=== PATIENT | female | born 1950 | race Caucasian/White ===

== ENCOUNTER 2021-06-29 10:39 | Emergency (ER) | payer MEDICARE ==
[2021-06-29] MEDS ORDERED: LIDOCAINE (1%) 10 MG/1 ML VIAL 20 ML MDV INFILTRATI ONE (10:51)
[2021-06-29] MEDS ORDERED: ceFAZolin 1 GM VIAL IM ONE (10:52)
[2021-06-29] MEDS ORDERED: SODIUM CHLORIDE 0.9% IRR 500 ML BOTTLE IR SCH (11:00)
[2021-06-29] MEDS ORDERED: HYDROcodone/ACETAMINOPHEN 5-325 MG TAB PO SCH (11:00)
[2021-06-29] MEDS ORDERED: TETANUS,DIPHTHERIA TOXOID ADULT 0.5 ML INJ IM ONE (11:30)
--- NOTE | 2021-06-29 11:33 | XRay Report ---
LEFT INDEX FINGER 3 VIEWS 1106 INDICATION: pain sp finger injury COMPARISON: None available. FINDINGS: There appears to be a laceration soft tissues of the index finger dorsolaterally near the d istal phalangeal joint. The distal phalanx is subluxed mildly laterally. A bony density is seen dorso medially at the distal interphalangeal joint which possibly could be a small avulsion fragment but is of an indeterminate age, and another tiny density which probably is bony is seen ventral medially al so of unknown age. No obvious donor site is identified. Slight lucency in the ventral aspect of the d istal portion of the middle phalanx probably relates to trabecular pattern rather than a fracture elieser vega Signer Name: Michael Miranda MD Signed: 06/29/2021 11:28 AM Workstation Name: [id number]
[2021-06-29] MEDS ORDERED: NEOMY 3.5 MG/BACIT 400 UNITS/POLY B 5000 UNITS/GM OINT PACKET TP ONE (12:52)
[2021-06-29] MEDS ORDERED: IBUPROFEN 800 MG TAB PO ONE (12:52)
[2021-06-29] MEDS ORDERED: oxyCODONE /ACETAMINOPHEN 5-325MG TAB PO ONE (12:52)
--- NOTE | 2021-06-29 12:53 | Emergency Department Report ---
- General Chief Complaint: Extremity Injury, Upper Stated Complaint: FINGER INJURY Time Seen by Provider: 06/29/21 10:51 Source: patient Mode of arrival: Ambulatory Limitations: Language Barrier - History of Present Illness Initial Comments: 70 yo comes to ER p slamming her left finger in the car door. Bleeding on arrival No other injury needs tdap -: Sudden Place: home Patient Tetanus UTD: No Context: accidental Associated Symptoms: none - Related Data Previous Rx's Medication Instructions Recorded Last Taken Type cephALEXin [Keflex] 500 mg PO Q12HR #20 cap 06/29/21 Unknown Rx traMADoL [Ultram] 50 mg PO Q6HR PRN #12 tablet 06/29/21 Unknown Rx Allergies Allergy/AdvReac Type Severity Reaction Status Date / Time No Known Allergies Allergy Unverified 06/29/21 10:45 ED Review of Systems ROS: Stated complaint: FINGER INJURY Other details as noted in HPI Comment: All other systems reviewed and negative ED Past Medical Hx - Past Medical History Previous Medical History?: No - Surgical History Past Surgical History?: No - Family History Family history: no significant - Social History Smoking Status: Never Smoker Substance Use Type: None - Medications Home Medications: Home Medications Medication Instructions Recorded Confirmed Last Taken Type cephALEXin [Keflex] 500 mg PO Q12HR #20 cap 06/29/21 Unknown Rx traMADoL [Ultram] 50 mg PO Q6HR PRN #12 tablet 06/29/21 Unknown Rx ED Physical Exam - General Limitations: Language Barrier General appearance: alert, in no apparent distress - Head Head exam: Present: atraumatic, normocephalic - Eye Eye exam: Present: normal appearance - ENT ENT exam: Present: mucous membranes moist - Neck Neck exam: Present: normal inspection - Respiratory Respiratory exam: Present: normal lung sounds bilaterally. Absent: respiratory distress - Cardiovascular Cardiovascular Exam: Present: regular rate, normal rhythm. Absent: systolic murmur, diastolic murmur, rubs, gallop - GI/Abdominal GI/Abdominal exam: Present: soft, normal bowel sounds - Extremities Exam Extremities exam: Present: normal inspection - Expanded Upper Extremity Exam Left Forearm Wrist exam: Present: normal inspection Hand Wrist exam: Present: normal inspection, other - Back Exam Back exam: Present: normal inspection - Neurological Exam Neurological exam: Present: alert, oriented X3 - Psychiatric Psychiatric exam: Present: normal affect, normal mood - Skin Skin exam: Present: warm, dry, intact, normal color. Absent: rash ED Course Vital Signs 06/29/21 10:45 Temperature 99.3 F Pulse Rate 101 H Respiratory 16 Rate Blood Pressure 185/106 O2 Sat by Pulse 100 Oximetry - Laceration /Wound Repair l index Wound Location: upper extremity Wound Length (cm): 2 Wound's Depth, Shape: irregular, flap, stellate, contused tissue Wound Explored: clean Irrigated w/ Saline (ccs): 500 Betadine Prep?: Yes Anesthesia: 1% Lidocaine Volume Anesthetic (ccs): 5 (digital block) Wound Debrided: minimal Wound Repaired With: sutures Suture Size/Type: 6:0 Number of Sutures: 5 Layer Closure?: Yes Deep Layer Suture Size/Type: 3:0, gut Number Deep Layer Sutures: 1 Sterile Dressing Applied?: Yes Progress: tolerated well time spent 60 minutes cleaning, repairing, dressing wound - Nerve Block Consent Obtained: emergent situation Time Out Performed: Yes Local Anesthetic Used: Lidocaine 1% Amount of anesthesia used: 5 Side: left Nerve Blocks: radial Procedure Successful: Yes Complications: none Patient Tolerated Procedure: well ED Medical Decision Making - Radiology Data Radiology results: report reviewed, image reviewed fx - Medical Decision Making Vital Signs 06/29/21 10:45 Temperature 99.3 F Pulse Rate 101 H Respiratory 16 Rate Blood Pressure 185/106 O2 Sat by Pulse 100 Oximetry left index finger with circumf. wound- the finger tip is nearly off; it is held in place by bone and a small band of tissue of at the medial surface of the finger. Lac is over the DIP. nail bed pink and rapid cap refill is present. MIP and PIP wo injury. Pt is having difficulty flexing the DIP but she can extend it. The flexor digitorum was visualized and repaired p vigorous cleaning and irrigating of the wound tdap 1gm ancef IM medicated for pain lac repair wound care discussed wound care instructions with family. dc home with dc plan of care including wound care/meds/dressing changes and follow up. Pt and family understand that I've salvaged the finger tip and there is chance it may not heal well. Also they understand that the tendon has been repaired but again may or may not regain flexion of the index finger. - Differential Diagnosis open fx/ lac/tendon injury Critical care attestation.: If time is entered above; I have spent that time in minutes in the direct care of this critically ill patient, excluding procedure time. ED Disposition Clinical Impression: Laceration of finger, Tendon injury Disposition: HOME / SELF CARE / HOMELESS Is pt being admited?: No Does the pt Need Aspirin: No Condition: Stable Instructions: Laceration Care, Adult Additional Instructions: medication as ordered today return in 7-10 days for suture removal motrin and tylenol may be used for pain- these are over the counter elevate hand today ice to finger today take dressing down in 24 hours clean with soap and water and reapply dressing do this daily until you come back to ER for removal of your suture take antibiotic until it is gone if you have any problems in the mean time referral to ortho MD is below Prescriptions: cephALEXin [Keflex] 500 mg PO Q12HR #20 cap traMADoL [Ultram] 50 mg PO Q6HR PRN #12 tablet PRN Reason: Pain Referrals: PRIMARY CAREMD [Primary Care Provider] - 3-5 Days JAROD DEL TORO MD [Staff Physician] - 3-5 Days Time of Disposition: 13:11
[2021-06-29] MEDS ORDERED: oxyCODONE 5 MG TAB PO ONE (13:13)
[2021-06-29 13:33] VITALS: BP 183/98
== END 2021-06-29 13:32 | disposition home or self-care (01) ==
LOC: ED 10:39
DX: S61.211A Laceration without foreign body of left index finger without damage to nail, initial encounter (principal); T14.8XXA Other injury of unspecified body region, initial encounter; X58.XXXA Exposure to other specified factors, initial encounter; Y93.89 Activity, other specified; Y92.89 Other specified places as the place of occurrence of the external cause; Y99.8 Other external cause status
CPT/HCPCS: 12041; 73140; 90471; 90714; 96372; 99283; J0690; J3490